=== PATIENT | female | born 1970 | race Caucasian/White ===

== ENCOUNTER 2016-10-20 16:36 | Emergency (ER) | payer BC ==
[2016-10-20 17:24] VITALS: BP 128/83
--- NOTE | 2016-10-20 17:42 | UC ---
Dental HPI - HPI Summary HPI Summary: pt presents with c/o or left lower molar pain and possible dental abscess. Pt has cavity in tooth that the dentist began to repair last week then decided that it was too large to fill and suggested that the tooth be extracted. Pt is scheduled to have tooth pulled on 10/26/16. - History of Current Complaint Chief Complaint: UCDentalProblem Stated Complaint: DENTAL Time Seen by Provider: 10/20/16 17:29 Hx Obtained From: Patient Hx Last Menstrual Period: 2 yrs ?: No Onset/Duration: Gradual Onset Severity: Mild Aggravating: Chewing Related History: Previous Dental Care on Same Tooth - Allergies/Home Medications Allergies/Adverse Reactions: Allergies Allergy/AdvReac Type Severity Reaction Status Date / Time Cephalexin Allergy Hives Verified 10/20/16 17:25 Penicillins Allergy Hives/Diff. Verified 10/20/16 17:24 Breathing/I tching PMH/Surg Hx/FS Hx/Imm Hx Previously Healthy: Yes Cardiovascular History Of: Reports: Cardiac Disorders - 04/29/15 (bradycardia after taking high dose HCTZ), Hypertension Psychological History Of: Reports: Depression - Surgical History Surgical History: Yes Surgery Procedure, Year, and Place: Total Hysterectomy, 2013, [facility] [employer] - Family History Known Family History: Positive: Other - positive for URI - Social History Alcohol Use: None Substance Use Type: None Smoking Status (MU): Never Smoked Tobacco Review of Systems Constitutional: Negative Skin: Negative Eyes: Negative ENT: Negative Respiratory: Negative Cardiovascular: Negative Gastrointestinal: Negative Genitourinary: Negative Motor: Negative Neurovascular: Negative Musculoskeletal: Other: - dental pain Neurological: Negative Psychological: Negative All Other Systems Reviewed And Are Negative: Yes Physical Exam Triage Information Reviewed: Yes Appearance: Well-Appearing Vital Signs: Initial Vital Signs Temp 99.3 F 10/20/16 17:21 Pulse 67 10/20/16 17:21 Resp 14 10/20/16 17:21 BP 128/83 10/20/16 17:21 Pulse Ox 97 10/20/16 17:21 Vital Signs Reviewed: Yes Eye Exam: Normal ENT Exam: Other ENT: Positive: Other: Dental Exam: Other Dental: Positive: Gross Decay/Caries @ - left lower molar, Neck exam: Other Neck: Positive: Tenderness @ - left side of neck Respiratory Exam: Normal Musculoskeletal Exam: Normal Neurological Exam: Normal Psychological Exam: Normal Skin Exam: Normal Dental Complaint Course/Dx - Differential Dx/Diagnosis Differential Diagnosis/Dx: Dental Abscess, Dental Caries Provider Diagnoses: dental abscess left lower molar, Discharge - Discharge Plan Condition: Stable Disposition: HOME Prescriptions: Clindamycin Cap(NF) [Cleocin 300 mg Cap(NF)] 300 mg PO Q6H #28 cap Ibuprofen TAB* [Motrin TAB* 600 MG] 600 mg PO Q8H PRN #24 tab PRN Reason: Pain predniSONE TAB* [Deltasone TAB*] 20 mg PO DAILY #4 tab Patient Education Materials: Dental Abscess (ED) Referrals: Mariya Rivas PA [Primary Care Provider] - Additional Instructions: Please follow up with your dental care provider as soon as possible.
[2016-10-20] MEDS ORDERED: Clindamycin CAP* 150 MG PO ONE (17:47)
== END 2016-10-20 17:54 | disposition home or self-care (01) ==
LOC: UCCORT 16:36
DX: K04.7 Periapical abscess without sinus (principal); Z88.1 Allergy status to other antibiotic agents; Z88.0 Allergy status to penicillin; I10 Essential (primary) hypertension; F32.9 Major depressive disorder, single episode, unspecified; Z90.710 Acquired absence of both cervix and uterus
CPT/HCPCS: 99212; A9270-GY; G0463

== ENCOUNTER 2016-11-13 20:23 | Emergency (ER) | payer BC ==
[2016-11-13 20:41] VITALS: BP 153/87
--- NOTE | 2016-11-13 20:41 | UC ---
Abdominal Pain Female HPI - History of Current Complaint Stated Complaint: STOMACH PAIN,VOMITING Time Seen by Provider: 11/13/16 20:30 Hx Obtained From: Patient, Family/Safety Lead Hx Last Menstrual Period: 2 yrs Allergies/Adverse Reactions: Allergies Allergy/AdvReac Type Severity Reaction Status Date / Time Cephalexin Allergy Hives Verified 10/20/16 17:25 Penicillins Allergy Hives/Diff. Verified 10/20/16 17:24 Breathing/I tching PMH/Surg Hx/FS Hx/Imm Hx Cardiovascular History Of: Reports: Cardiac Disorders - 04/29/15 (bradycardia after taking high dose HCTZ), Hypertension Psychological History Of: Reports: Depression - Surgical History Surgical History: Yes Surgery Procedure, Year, and Place: Total Hysterectomy, 2013, [facility] [employer] - Family History Known Family History: Positive: None, Other - positive for URI - Social History Alcohol Use: None Substance Use Type: None Smoking Status (MU): Never Smoked Tobacco
--- NOTE | 2016-11-13 21:01 | UC ---
UC General HPI - HPI Summary HPI Summary: The patient comes in today for: 1. Vomiting and diarrhea: Onset: 4-5 days ago. Palliative/provocative: Eat or drinking makes stooling worse. Laying down or standing is OK. Sitting is associated with abdominal pain. Quality: No abdominal pain now. Cramping before BM Region: Abdomen. Severity: 0/10 now. Time: Comes and goes. Associated symptoms: Travel: None. : Vomiting: No vomiting. Diarrhea: 20 stools/day. : Vomiting: once. Diarrhea: 20 stools/day. : Vomiting: None. Diarrhea: 20 stools/day. : Vomiting: None. Diarrhea: 20 stools/day. : Vomiting: None. Diarrhea: 20 stools/day. : Vomiting: None. Diarrhea: 20 stools/day. Blood, mucous, pus: Mucous present along with "bright yellow fish scales." Fever: No temperature taken. Intestinal diseases: negative for her or family. Poor at best. She will urinate without stooling and it is very yellow and strong. She complains of feeling lightheaded. * - History of Current Complaint Chief Complaint: UCAbdominalPain Stated Complaint: STOMACH PAIN,VOMITING Time Seen by Provider: 11/13/16 20:30 Hx Obtained From: Patient - Allergy/Home Medications Allergies/Adverse Reactions: Allergies Allergy/AdvReac Type Severity Reaction Status Date / Time Cephalexin Allergy Hives Verified 11/13/16 20:41 Penicillins Allergy Hives/Diff. Verified 11/13/16 20:41 Breathing/I tching Home Medications: Home Medications NK [No Home Medications Reported] 11/13/16 [History Confirmed 11/13/16] PMH/Surg Hx/FS Hx/Imm Hx Previously Healthy: No Endocrine History Of: Denies: Diabetes, Thyroid Disease, Hyperthyroidism, Hypothyroidism, Dyslipidemia Cardiovascular History Of: Reports: Cardiac Disorders - 04/29/15 (bradycardia after taking high dose HCTZ), Hypertension Denies: Pacemaker/ICD, Myocardial Infarction, Congestive Heart Failure, Atrial Fibrillation, Deep Vein Thrombosis, Bleeding Disorders Respiratory History Of: Denies: COPD, Asthma, Bronchitis, Pneumonia, Pulmonary Embolism GI/ History Of: Reports: Gastroesophageal Reflux - Not on medication for this. She sees [facility] for this. Denies: Ulcer, Gastrointestinal Bleed, Gall Bladder Disease, Kidney Stones, Diverticulitis, Renal Disease, Urosepsis Neurological History Of: Denies: TIA, CVA, Dementia, Seizures, Migraine Psychological History Of: Reports: Depression - She denies any problems with depression. Denies: Anxiety, Bipolar Disorder, Schizophrenia, Post Traumatic Stress Disorder Cancer History Of: Denies: Lung Cancer, Colorectal Cancer, Breast Cancer, Prostate Cancer, Cervical Cancer Other History Of: Negative For: HIV, Hepatitis B, Hepatitis C, Anticoagulant Therapy - Surgical History Surgical History: Yes Surgery Procedure, Year, and Place: Total Hysterectomy, 2013, [facility] [employer] - Family History Known Family History: Positive: Cardiac Disease, Hypertension, Other - positive for URI - Social History Occupation: Employed Full-time Alcohol Use: None Substance Use Type: None Smoking Status (MU): Never Smoked Tobacco Review of Systems Constitutional: Negative Skin: Negative Eyes: Negative ENT: Negative Respiratory: Negative Cardiovascular: Negative Gastrointestinal: Abdominal Pain, Diarrhea Genitourinary: Negative, Dysuria - "Some, but not always." All Other Systems Reviewed And Are Negative: Yes Physical Exam Triage Information Reviewed: Yes Appearance: Well-Nourished, Pain Distress - She has some psychomotor slowing. She had a furrowed brow, but no grimacing except during the exam. Vital Signs: Initial Vital Signs Temp 98.9 F 11/13/16 20:30 Pulse 89 11/13/16 20:30 Resp 16 11/13/16 20:30 BP 153/87 11/13/16 20:30 Pulse Ox 98 11/13/16 20:30 Vital Signs Reviewed: Yes Eyes: Positive: Conjunctiva Clear. Negative: Discharge ENT: Positive: Hearing grossly normal. Negative: Pharyngeal erythema, Nasal congestion, Nasal drainage, TM bulging, TM dull, TM red, Tonsillar swelling, Tonsillar exudate Dental: Negative: Gross Decay/Caries @, Dental Fracture @ Neck: Positive: Supple, Nontender, No Lymphadenopathy. Negative: Nuchal Rigidity Respiratory: Positive: Lungs clear, No respiratory distress, No accessory muscle use. Negative: Crackles, Wheezing Cardiovascular: Positive: RRR, No Murmur Abdomen Description: Positive: No Organomegaly, Soft, Other: - She had tenderness with grimacing with pressure of the LLQ and the periumbilical area as well as the LUQ.. Negative: Nontender, Distended, Guarding Musculoskeletal: Positive: Strength Intact, ROM Intact, No Edema Neurological: Positive: Alert, Muscle Tone Normal Psychological: Positive: Age Appropriate Behavior, Consolable Skin: Negative: rashes, breakdown Course/Dx - Course Course Of Treatment: Patient was told that there are many causes of abdominal pain. And of these causes, some are benign and self-limiting and some are life- threatening. Of the life threatening ones, they may present with minimal symptoms and signs or be present with no symptoms. For these reasons, many times we rely on the testing that we don't have available here in the office or have the ability to get results timely. For this reason, it would be safer for her to have this evaluated in the ER. She agreed and wanted to go via private car. - Differential Dx - Multi-Symptom Provider Diagnoses: abdominal pain. Diarrhea. - Physician Notifications Discussed Patient Care With: Sheila Mcneil Time Discussed With Above Provider: 21:21 Discharge - Discharge Plan Condition: Stable Disposition: HOME Additional Instructions: Patient going by private car to [facility]
== END 2016-11-13 21:24 | disposition home or self-care (01) ==
LOC: UCCORT 20:23
DX: R10.32 Left lower quadrant pain (principal); R10.33 Periumbilical pain; R10.12 Left upper quadrant pain; R19.7 Diarrhea, unspecified; K21.9 Gastro-esophageal reflux disease without esophagitis; F32.9 Major depressive disorder, single episode, unspecified; Z88.1 Allergy status to other antibiotic agents; Z88.0 Allergy status to penicillin
CPT/HCPCS: 99212; G0463

== ENCOUNTER 2017-11-09 16:53 | Emergency (ER) | payer BC ==
[2017-11-09 17:14] VITALS: BP 122/85
--- NOTE | 2017-11-09 17:18 | UC ---
General HPI - HPI Summary HPI Summary: pt c/o 1 week hx R ear plugged, throat irritation and cough with SOB, Wheezing and tight lungs. no cp. does have a hx of asthma. - History of Current Complaint Stated Complaint: RIGHT EAR COMPLAINT Time Seen by Provider: 11/09/17 17:06 Hx Obtained From: Patient Hx Last Menstrual Period: 2 yrs Onset/Duration: Gradual Onset Timing: Constant Aggravating: exertion Alleviating: nothing Associated Signs & Symptoms: Positive: Cough, Trauma, Wheezing. Negative: Chest Pain, Fever - Allergy/Home Medications Allergies/Adverse Reactions: Allergies Allergy/AdvReac Type Severity Reaction Status Date / Time cephalexin Allergy Hives Verified 11/09/17 17:06 Penicillins Allergy Hives/Diff. Verified 11/09/17 17:06 Breathing/I tching Home Medications: Home Medications buPROPion SR TAB* [Wellbutrin SR TAB*] 150 mg PO DAILY 11/09/17 [History Confirmed 11/09/17] hydroCHLOROthiazide [Microzide-] 12.5 mg PO DAILY 11/09/17 [History Confirmed ] PMH/Surg Hx/FS Hx/Imm Hx Cardiovascular History: Hypertension Respiratory History: Asthma Psychological History: Anxiety, Depression Other History Of: Negative For: HIV, Hepatitis B, Hepatitis C, Anticoagulant Therapy - Surgical History Surgical History: Yes Surgery Procedure, Year, and Place: Total Hysterectomy, 2013, [facility] [employer] - Family History Known Family History: Positive: None, Cardiac Disease, Hypertension, Other - positive for URI - Social History Occupation: Employed Full-time Lives: With Family Alcohol Use: None Substance Use Type: None Smoking Status (MU): Never Smoked Tobacco - Immunization History Vaccination Up to Date: Yes Review of Systems Constitutional: Negative Skin: Negative Eyes: Negative ENT: Sore Throat, Ear Ache Respiratory: Shortness Of Breath, Cough Cardiovascular: Negative Gastrointestinal: Negative Genitourinary: Negative Motor: Negative Neurovascular: Negative Musculoskeletal: Negative Neurological: Negative Psychological: Negative Is Patient Immunocompromised?: No All Other Systems Reviewed And Are Negative: Yes Physical Exam Triage Information Reviewed: Yes Appearance: Well-Appearing Vital Signs Reviewed: Yes Eyes: Positive: Conjunctiva Clear ENT: Positive: Pharynx normal, Nasal congestion, TMs normal. Negative: Nasal drainage Neck: Positive: Supple, Nontender, No Lymphadenopathy Respiratory: Positive: Lungs clear, No respiratory distress, Decreased breath sounds Cardiovascular: Positive: RRR, No Murmur Abdomen Description: Positive: Nontender, No Organomegaly, Soft Bowel Sounds: Positive: Present Musculoskeletal: Positive: ROM Intact Neurological: Positive: Alert Psychological: Positive: Age Appropriate Behavior Skin Exam: Normal Re-Evaluation - Re-Evaluation Second Eval Change: Improved - betteraeration, less cough and pt notes easier to breathe. Course/Dx - Course Course Of Treatment: non toxic, not hypoxic. no om/oe. throat unremarkable. will tx for asthma flare - Differential Dx - Multi-Symptom Provider Diagnoses: asthma exacerbation Discharge - Sign-Out/Discharge Documenting (check all that apply): Discharge/Admit/Transfer - Discharge Plan Condition: Stable Disposition: HOME Prescriptions: Albuterol HFA INHALER* [Ventolin HFA Inhaler*] 2 puff INH Q6H #1 mdi DOXYcycline CAP(*) [DOXYcycline 100MG CAP(*)] 100 mg PO BID #14 cap predniSONE TAB* [Deltasone TAB*] 40 mg PO DAILY 5 Days #10 tab Patient Education Materials: Asthma (DC) Referrals: Lulu Chacon MD [Primary Care Provider] - 5 Days - Billing Disposition and Condition Condition: STABLE Disposition: HOME
[2017-11-09] MEDS ORDERED: Albuterol 2.5 MG/3 ML NEB.SOL* (0.083%) INH ONE (17:19)
== END 2017-11-09 17:39 | disposition home or self-care (01) ==
LOC: UCCORT 16:53
DX: J45.901 Unspecified asthma with (acute) exacerbation (principal); Z88.1 Allergy status to other antibiotic agents; Z88.0 Allergy status to penicillin
CPT/HCPCS: 99212; G0463

== ENCOUNTER 2018-02-11 16:51 | Emergency (ER) | payer BC ==
[2018-02-11 18:18] VITALS: BP 144/92
--- NOTE | 2018-02-11 18:31 | UC ---
Skin Complaint HPI - HPI Summary HPI Summary: Pt c/o of itchy, crusted, sore on posterior left calf X 5 days. Pt has know exposure to impetigo. Pt has been applying triple antibiotic ointment and covering wound daily. - History of Current Complaint Chief Complaint: UCRash Time Seen by Provider: 02/11/18 18:26 Stated Complaint: SKIN COMPLAINT Hx Obtained From: Patient Hx Last Menstrual Period: 2 yrs ?: No Onset/Duration: Sudden Onset, Lasting Days, Still Present Skin Exposure Onset/Duration: Days Ago Timing: Constant Onset Severity: Mild Current Severity: Mild Pain Intensity: 0 Location: Discrete Character: Pruritus, Redness Aggravating Factor(s): Touch Alleviating Factor(s): OTC Creams/Salves Associated Signs & Symptoms: Positive: Drainage, Tenderness - Allergy/Home Medications Allergies/Adverse Reactions: Allergies Allergy/AdvReac Type Severity Reaction Status Date / Time cephalexin Allergy Hives Verified 02/11/18 18:18 Penicillins Allergy Hives/Diff. Verified 02/11/18 18:18 Breathing/I tching Home Medications: Home Medications Albuterol HFA INHALER* [Ventolin HFA Inhaler*] 2 puff INH Q6H PRN 02/11/18 [ History Confirmed 02/11/18] Review of Systems Constitutional: Negative Skin: Rash Eyes: Negative ENT: Negative Respiratory: Negative Cardiovascular: Negative Gastrointestinal: Negative Genitourinary: Negative Motor: Negative Neurovascular: Negative Musculoskeletal: Negative Neurological: Negative Psychological: Negative Is Patient Immunocompromised?: No All Other Systems Reviewed And Are Negative: Yes PMH/Surg Hx/FS Hx/Imm Hx Previously Healthy: Yes Other History Of: Negative For: HIV, Hepatitis B, Hepatitis C, Anticoagulant Therapy - Surgical History Surgical History: Yes Surgery Procedure, Year, and Place: Total Hysterectomy, 2013, [facility] [employer] - Family History Known Family History: Positive: Cardiac Disease, Hypertension, Other - positive for URI - Social History Occupation: Employed Full-time Lives: With Family Alcohol Use: None Substance Use Type: None Smoking Status (MU): Never Smoked Tobacco Have You Smoked in the Last Year: No - Immunization History Vaccination Up to Date: Yes Physical Exam Triage Information Reviewed: Yes Appearance: Well-Appearing Vital Signs: Initial Vital Signs Temp 97.9 F 02/11/18 18:13 Pulse 79 02/11/18 18:13 Resp 16 02/11/18 18:13 BP 144/92 02/11/18 18:13 Pulse Ox 100 02/11/18 18:13 Vital Signs Reviewed: Yes Eye Exam: Normal ENT: Positive: Hearing grossly normal Dental Exam: Normal Neck exam: Normal Respiratory: Positive: No respiratory distress Musculoskeletal Exam: Normal Neurological Exam: Normal Psychological Exam: Normal Skin Exam: Other - dime size paige crusted, sore on left posterior mid calf. Course/Dx - Differential Diagnoses - Skin Complaint Differential Diagnoses: Cellulitis, Impetigo, MRSA - Diagnoses Provider Diagnoses: impetigo Discharge - Sign-Out/Discharge Documenting (check all that apply): Patient Departure All imaging exams completed and their final reports reviewed: No Studies - Discharge Plan Condition: Stable Disposition: HOME Prescriptions: Mupirocin 2% OINT* [Bactroban 2 % Oint*] 1 applic TOPICAL Q12H #1 tube Patient Education Materials: Impetigo (ED) Referrals: Lulu Chacon MD [Primary Care Provider] - If Needed - Billing Disposition and Condition Condition: STABLE Disposition: Home Attestation Statement User Type: Provider - I was available for consult. This patient was seen by the BERENICE. The patient was not presented to, seen by, or examined by me. -Dolly
== END 2018-02-11 18:44 | disposition home or self-care (01) ==
LOC: UCCORT 16:51
DX: L01.00 Impetigo, unspecified (principal); Z88.0 Allergy status to penicillin; Z88.1 Allergy status to other antibiotic agents
CPT/HCPCS: 99212; G0463

== ENCOUNTER 2018-06-26 10:52 | Emergency (ER) | payer BC ==
[2018-06-26 13:05] VITALS: BP 141/87
--- NOTE | 2018-06-26 14:06 | ED ---
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 She states the past month the pain has gotten worse. She has ahd headache as well for a week straight, mild in intensity, and on top of head. Nothing makes is better or worse. No change in vision , hearing, speech, swallowing, no focal deficits, no weakness, no gait disturbance. The patient has not had any fever, chills, injuries or falls. - History Of Current Complaint Chief Complaint: UCHeadache Stated Complaint: NECK,BACK PAIN Time Seen by Provider: 06/26/18 13:43 Hx Last Menstrual Period: 2 yrs - Allergies/Home Medications Allergies/Adverse Reactions: Allergies Allergy/AdvReac Type Severity Reaction Status Date / Time cephalexin Allergy Hives Verified 06/26/18 12:59 Penicillins Allergy Hives/Diff. Verified 06/26/18 12:59 Breathing/I tching Home Medications: Home Medications Acetaminophen [Tylenol Extra Strength] 1,000 mg PO ONCE PRN 06/26/18 [History Confirmed 06/26/18] PMH/Surg Hx/FS Hx/Imm Hx Endocrine/Hematology History: Denies: Hx Anticoagulant Therapy, Hx Diabetes, Hx Thyroid Disease Cardiovascular History: Reports: Hx Hypertension Denies: Hx Congestive Heart Failure, Hx Deep Vein Thrombosis, Hx Myocardial Infarction, Hx Pacemaker/ICD Respiratory History: Denies: Hx Asthma, Hx Chronic Obstructive Pulmonary Disease (COPD), Hx Lung Cancer, Hx Pneumonia, Hx Pulmonary Embolism GI History: Denies: Hx Gall Bladder Disease, Hx Gastrointestinal Bleed, Hx Ulcer, Hx Urosepsis History: Denies: Hx Kidney Stones, Hx Renal Disease Neurological History: Denies: Hx Dementia, Hx Migraine, Hx Seizures, Hx Transient Ischemic Attacks (TIA) Psychiatric History: Reports: Hx Depression - She denies any problems with depression. Denies: Hx Anxiety, Hx Schizophrenia, Hx Bipolar Disorder - Surgical History Surgery Procedure, Year, and Place: Total Hysterectomy, 2013, [facility] Diaer Infectious Disease History: No Infectious Disease History: Denies: Traveled Outside the [place] in Last 30 Days - Family History Known Family History: Positive: None, Cardiac Disease, Hypertension, Other - positive for URI - Social History Alcohol Use: None Substance Use Type: Reports: None Smoking Status (MU): Never Smoked Tobacco Have You Smoked in the Last Year: No Review of Systems Constitutional: Negative Negative: Vomiting, Nausea Positive: Other - back pain Positive: Headache. Negative: Weakness, Paresthesia, Numbness, Syncope, Slurred Speech All Other Systems Reviewed And Are Negative: Yes Physical Exam Triage Information Reviewed: Yes Vital Signs On Initial Exam: Initial Vitals Temp Pulse Resp BP Pulse Ox 98.3 F 68 16 141/87 97 06/26/18 12:59 06/26/18 12:59 06/26/18 12:59 06/26/18 12:59 06/26/18 12:59 Vital Signs Reviewed: Yes Appearance: Positive: Well-Appearing, No Pain Distress Skin: Positive: Warm, Skin Color Reflects Adequate Perfusion Head/Face: Positive: Normal Head/Face Inspection Eyes: Positive: EOMI, ELVIRA ENT: Positive: Pharynx normal, TMs normal. Negative: Sinus tenderness Neck: Positive: Nontender Respiratory/Lung Sounds: Positive: Clear to Auscultation, Breath Sounds Present Cardiovascular: Positive: RRR. Negative: Murmur Abdomen Description: Positive: Nontender Musculoskeletal: Positive: Strength/ROM Intact Neurological: Positive: Sensory/Motor Intact, Alert, Oriented to Person Place, Time, CN Intact II-III Psychiatric: Positive: Normal - Solis Coma Scale Best Eye Response: 4 - Spontaneous Best Motor Response: 6 - Obeys Commands Best Verbal Response: 5 - Oriented Coma Scale Total: 15 Diagnostics - Vital Signs Vital Signs Temp Pulse Resp BP Pulse Ox 06/26/18 12:59 98.3 F 68 16 141/87 97 - Laboratory Lab Statement: Any lab studies that have been ordered have been reviewed, and results considered in the medical decision making process. Headache Course/Dx - Course Course Of Treatment: 47 yr old female with chronic neck and back pain and with headache. recommend she go to the ER for further eval and with her primary for MRI studies. - Diagnoses Provider Diagnoses: Headache, Back pain, Hypertension Discharge - Sign-Out/Discharge Documenting (check all that apply): Patient Departure All imaging exams completed and their final reports reviewed: No Studies - Discharge Plan Condition: Good Disposition: HOME-RECOMMEND TO ED Patient Education Materials: Acute Headache (ED), Hypertension (ED), Back Pain (ED) Referrals: Lulu Chacon MD [Primary Care Provider] - 1 Day Additional Instructions: Go to the ER for further work up of your headache, and back pain. Do not delay. - Billing Disposition and Condition Condition: GOOD Disposition: Home-Recommend to ED
== END 2018-06-26 14:35 | disposition home health service (06) ==
LOC: UCCORT 10:52
DX: R51 Headache (principal); M54.6 Pain in thoracic spine; I10 Essential (primary) hypertension; Z88.0 Allergy status to penicillin; Z88.1 Allergy status to other antibiotic agents
CPT/HCPCS: 99212; G0463

== ENCOUNTER 2019-01-22 18:03 | Emergency (ER) | payer BC ==
[2019-01-22 19:16] VITALS: BP 139/93
--- NOTE | 2019-01-22 19:25 | UC ---
Throat Pain/Nasal Gustavo HPI - HPI Summary HPI Summary: 48-year-old female presents with 5 day history of nasal congestion, sinus pressure, postnasal drip, and occasional nonproductive cough. States she had a mild sore throat at the onset of the symptoms that has since resolved. Today she developed some pain and pressure with muffled hearing in her right ear. Last night had a low-grade fever of 100.4 F. She has been taking Sudafed and ibuprofen with some mild relief in her symptoms. Denies ear drainage, dysphagia , chest pain, shortness of breath, or wheezing. - History of Current Complaint Chief Complaint: UCRespiratory Stated Complaint: SINUSES AND R EAR PAIN Time Seen by Provider: 01/22/19 19:12 Hx Obtained From: Patient Hx Last Menstrual Period: 2 yrs Pain Intensity: 5 - Allergies/Home Medications Allergies/Adverse Reactions: Allergies Allergy/AdvReac Type Severity Reaction Status Date / Time cephalexin Allergy Hives Verified 01/22/19 19:10 Penicillins Allergy Hives/Diff. Verified 01/22/19 19:10 Breathing/I tching Home Medications: Home Medications Hydrochlorothiazide TAB* [Hydrodiuril TAB*] 25 mg PO DAILY 01/22/19 [History Confirmed 01/22/19] Phenylephrine HCl [Sudafed PE] 10 mg PO PRN 01/22/19 [History] PMH/Surg Hx/FS Hx/Imm Hx Cardiovascular History: Hypertension Respiratory History: Asthma Other History Of: Negative For: HIV, Hepatitis B, Hepatitis C, Anticoagulant Therapy - Surgical History Surgical History: Yes Surgery Procedure, Year, and Place: Total Hysterectomy, 2013, [facility] - Family History Known Family History: Positive: None, Cardiac Disease, Hypertension, Other - positive for URI - Social History Occupation: Employed Full-time Lives: With Family Alcohol Use: None Substance Use Type: None Smoking Status (MU): Never Smoked Tobacco Have You Smoked in the Last Year: No - Immunization History Vaccination Up to Date: Yes Review of Systems All Other Systems Reviewed And Are Negative: Yes Constitutional: Positive: Fever. Negative: Chills Skin: Negative: Rash Eyes: Negative: Drainage, Eye Redness ENT: Positive: Ear Ache, Nasal Discharge, Sinus Congestion, Sinus Pain/ Tenderness. Negative: Sore Throat Respiratory: Positive: Cough. Negative: Shortness Of Breath Cardiovascular: Negative: Palpitations, Chest Pain Gastrointestinal: Negative: Abdominal Pain, Vomiting, Diarrhea, Nausea Genitourinary: Positive: Negative Musculoskeletal: Positive: Negative Neurological: Positive: Negative Is Patient Immunocompromised?: No Physical Exam - Summary Physical Exam Summary: GENERAL APPEARANCE: Well developed, well nourished, alert and cooperative, and appears to be in no acute distress. EYES: Conjunctiva clear. No drainage. EARS: External auditory canals clear, left TM opaque with good cone of light, right TM dull with air bubbles noted. NOSE: Moderate nasal congestion with mucosal erythema and edema. No nasal discharge. Maxillary sinus tenderness. THROAT: Pharyngeal cobblestoning. No tonsilar inflammation, swelling, exudate, or lesions. Uvula midline. NECK: Neck supple, non-tender without lymphadenopathy. CARDIAC: Normal S1 and S2. No S3, S4 or murmurs. Rhythm is regular. There is no peripheral edema, cyanosis or pallor. Extremities are warm and well perfused. Capillary refill is less than 2 seconds. Peripheral pulses intact. LUNGS: Clear to auscultation without rales, rhonchi, wheezing or diminished breath sounds. ABDOMEN: Positive bowel sounds. Soft, nondistended, nontender. No guarding or rebound. No masses or hepatosplenomegally. MUSKULOSKELETAL: ROM intact to all extremities. No joint erythema or tenderness. Normal muscular development. Normal gait. SKIN: Skin normal color, texture and turgor with no lesions or eruptions. Triage Information Reviewed: Yes Vital Signs: Initial Vital Signs Temp 98.1 F 01/22/19 19:12 Pulse 87 01/22/19 19:12 Resp 16 01/22/19 19:12 BP 139/93 01/22/19 19:12 Pulse Ox 100 01/22/19 19:12 Vital Signs Reviewed: Yes Throat Pain/Nasal Course/Dx - Course Course Of Treatment: 48-year-old female presents with 5 day history of nasal congestion, sinus pressure, postnasal drip, and occasional nonproductive cough. States she had a mild sore throat at the onset of the symptoms that has since resolved. Today she developed some pain and pressure with muffled hearing in her right ear. Last night had a low-grade fever of 100.4 F. She has been taking Sudafed and ibuprofen with some mild relief in her symptoms. Denies ear drainage, dysphagia , chest pain, shortness of breath, or wheezing. Afebrile. Vital signs stable. Exam revealed moderate nasal congestion with mucosal erythema and edema, maxillary sinus tenderness, the right TM was dull with some air bubbles noted, pharyngeal cobblestoning without tonsillar swelling or exudate, no cervical lymphadenopathy, clear bowel breath sounds, and otherwise unremarkable exam. Recommending symptomatic treatment for a viral sinus infection including saline rinses, fluticasone nasal spray, [id number] decongestant, and over-the- counter analgesics. She is to follow-up with her primary care provider in 3-5 days if symptoms are not improving. Discharged evidence warning symptoms reviewed with the patient. Verbalized understanding and agrees with plan of care. - Differential Dx/Diagnosis Differential Diagnosis/HQI/PQRI: Pharyngitis, Sinusitis, Tonsillitis, URI Provider Diagnosis: Sinusitis Discharge - Sign-Out/Discharge Documenting (check all that apply): Patient Departure All imaging exams completed and their final reports reviewed: No Studies - Discharge Plan Condition: Stable Disposition: HOME Prescriptions: Fluticasone NASAL SPRAY 50MCG* [Flonase NASAL SPRAY 50MCG*] 2 spray BOTH NARES DAILY #1 btl Patient Education Materials: Sinusitis (ED) Referrals: Lulu Chacon MD [Primary Care Provider] - 3 Days Additional Instructions: Your history and exam are consistent with a sinus infection. Sinus infections without fever are most often caused by a viral infection. Viral infections do not respond to antibiotics and are limited to the treatment of symptoms. Viral infections typically run their course in 7-10 days. Drink plenty of fluids to avoid dehydration especially if you are running any fever. Use a saline rinse kit such as Neti Pot or NeilMed at least twice a day to help thin secretions and promote drainage of the sinuses. Use fluticasone (Flonase) nasal spray 2 sprays each nostril once daily. Use an over the counter decongestant such as Sudafed according to directions to help with congestion. Take over the counter acetaminophen (Tylenol) or ibuprofen (Advil, Motrin) according to directions as needed for pain or fever. Follow up with your primary care provider in 3-5 days if symptoms persist. Seek immediate medical attention in the emergency room if you have fever greater than 100.5 F despite taking acetaminophen or ibuprofen, have chest pain , difficulty breathing, are unable to swallow, or have any worsening of symptoms. - Billing Disposition and Condition Condition: STABLE Disposition: Home - Attestation Statements Provider Attestation: I was available for consult. This patient was seen by the BERENICE. The patient was not presented to, seen by, or examined by me. Stuart De Souza MD
== END 2019-01-22 19:47 | disposition home or self-care (01) ==
LOC: UCCORT 18:03
DX: J32.9 Chronic sinusitis, unspecified (principal); Z88.0 Allergy status to penicillin; I10 Essential (primary) hypertension
CPT/HCPCS: 99212; G0463